=== PATIENT | female | born 1955 | race Two or more races ===

== ENCOUNTER 2019-06-20 06:30 | Day surgery (SDC) | payer MEDICARE ==
[2019-06-20] MEDS ORDERED: IRR STERIL WATER FOR IRR 1000 ML BOTTLE IR ONE (06:31)
[2019-06-20] MEDS ORDERED: IV LACTATED RINGERS SOLUTION 1,000 ML BAG IV ONE (06:31)
[2019-06-20] MEDS ORDERED: CIPROFLOXACIN 0.3% OPHT DROP 2.5 ML BOTTLE ONE (06:46)
[2019-06-20] MEDS ORDERED: KETOROLAC 0.5% OPHT DROP 3 ML BOTTLE ONE (06:46)
[2019-06-20] MEDS ORDERED: CYCLOPENTOLATE 1% OPHT DROP 2 ML BOTTLE ONE (06:46)
[2019-06-20] MEDS ORDERED: PHENYLEPHRINE 2.5% OPHT DROP 2 ML BOTTLE ONE (06:47)
[2019-06-20] MEDS ORDERED: TROPICAMIDE 1% OPHT DROP 3 ML BOTTLE ONE (06:47)
[2019-06-20] MEDS ORDERED: TIMOLOL MALEATE 0.5% OPHT DROP 5 ML BOTTLE ONE (07:22)
[2019-06-20] MEDS ORDERED: LIDOCAINE-MPF 2% 5 ML VIAL ONE (07:22)
[2019-06-20] MEDS ORDERED: MOXIFLOXACIN HCL 3 ML OPHT DROPS ONE (07:22)
[2019-06-20] MEDS ORDERED: HYALURONIDASE,OVINE 200 UNITS/ML VIAL ONE (07:23)
[2019-06-20] MEDS ORDERED: ACETYLCHOLINE CHLORIDE 1% OPHT 1 EA KIT ONE (07:23)
[2019-06-20] MEDS ORDERED: BUPIVACAINE PF 0.5% 30 ML VIAL ONE (07:23)
[2019-06-20] MEDS ORDERED: TETRACAINE HCL 0.5% OPHT DROP 2 ML BOTTLE ONE (07:23)
[2019-06-20] MEDS ORDERED: BALANCED SALT IRRIG SOLN COMB2 15 ML IRRIG.SOLN ONE (07:23)
[2019-06-20] MEDS ORDERED: HYALURONATE SODIUM 12.8 MG/0.8 ML DISP.SYRIN ONE (07:24)
[2019-06-20] MEDS ORDERED: TOBRAMYCIN/DEXAMETH OPHT OINT 3.5 GM TUBE ONE (07:24)
[2019-06-20] MEDS ORDERED: FENTANYL CITRATE 100 MCG/2 ML AMPUL ONE (07:47)
[2019-06-20] MEDS ORDERED: BALANCED SALT IRRIG SOLN COMB1 500 ML, EPINEPHRINE-PF 1:1000 0.5 MG IO ONE ×2 (08:00)
[2019-06-20] MEDS ORDERED: BALANCED SALT IRRIG SOLN COMB1 500 ML ONE (08:40)
== END 2019-06-20 10:25 | disposition home or self-care (01) ==
LOC: DS 06:30
PROVIDERS: ATTEND Ophthalmology
DX: H25.12 Age-related nuclear cataract, left eye (principal); I10 Essential (primary) hypertension; H40.9 Unspecified glaucoma; M19.90 Unspecified osteoarthritis, unspecified site; Z79.899 Other long term (current) drug therapy
CPT/HCPCS: 66982; 71045; J0171; J3010; J3471; J3490 ×2; J7120 ×2; J7321; V2632; A4217; A4663; J3590